=== PATIENT | male | born 1975 | race Two or more races ===

== ENCOUNTER → 2021-02-06 | Outpatient (CLI) | payer OTHER ==
--- NOTE | 2021-02-06 16:27 | CARD ---
MR#: [id number] Date of Study: 02/06/2021 Ordering Physician: CHANELL MENA, Referring Physician: Pam MORALES: Jimmy Barone [facility] APPROVED REPORT INDICATION Chest pressure RISK FACTORS Family History STRESS ECHO FINDINGS The resting Echocardiogram showed normal left ventricular systolic contractility with an estimated Ej ection Fraction of about 55 %. The Resting Echocardiogram showed normal augmentation of myocardial wall segments using a 16 segment model. The Stress Echocardiogram showed normal augmentation of myocardial wall segments using a 16 segment m kevin. The Stress Echocardiogram left ventricular systolic contractility has an estimated Ejection Fraction of about 65%. Test Type: Exercise Stress Nurse/Tech: Heather Suarez RN Test Indications: Chest pain Cardiac History and Allergies: Family history Medications: see EMR Medical History: see EMR Resting ECG: SR Resting Heart Rate: 73 bpm Resting Blood Pressure: 127/67mmHg Pretest Chest Pain: No chest pain Nurse/Tech Notes S1,S2 and lungs clear to auscultation. Patient stated he has been having chest pain off and on, curre ntly none. Stress Symptoms No chest pain or symptoms. POST EXERCISE Reason for Termination: Reached target heart rate, Fatigue Target HR: Yes Max HR: 175 bpm 101% of Maximum Predicted HR: 174 bpm Exercise duration: 11:22 min:sec, 4 Stage Exercise capacity: 12.8METs Max Blood Pressure: 149/64mmHg Blood Pressure response to exercise: Normal blood pressure response during stress. Heart Rate response to exercise: WNL Chest Pain: No. Arrhythmia: No. ST Change: No. INTERPRETATION Stress EKG Conclusion: The resting EKG showed a sinus rhythm and minimal nonspecific T wave changes. The stress EKG showed no significant changes from baseline. No EKG evidence of stress-induced ischemia. <Conclusion> Excellent exercise tolerance with the patient walking for 11 minutes and 22 seconds on a [employer] protoc ol. No chest pain with exertion. No EKG evidence of stress-induced ischemia. Normal LV systolic function at rest. Normal LV response to exertion with no regional wall motion abnormalities. Low risk treadmill echo stress test. Signed by : Steve Paul MD Electronically Approved : 02/06/2021 16:26:23
== END ==
LOC: ECHO 14:05
PROVIDERS: ATTEND Internal Medicine Cardiovascular Disease
DX: R07.9 Chest pain, unspecified (principal)
CPT/HCPCS: 93017; 93350